=== PATIENT | male | born 1990 | race Caucasian/White ===

== ENCOUNTER 2016-12-27 10:37 | Emergency (ER) | payer OTHER ==
[~2016-12-27] VITALS: Ht 188 cm; Wt 75.0 kg
[~2016-12-27 10:37] MED LIST: ALBU8I INH; VIST50CA PO
[2016-12-27 10:41] VITALS: BP 129/64; PULSE 74; RESP 20; TEMP 97.3; O2SAT 94
--- NOTE | 2016-12-27 10:56 | PD ---
HPI Chief Complaint: Laceration/Skin Injury Time Seen by Provider: 10:52 Travel History International Travel<30 days: No Contact w/Intl Traveler<30days: No Traveled to known affect area: No History of Present Illness HPI 26-year-old male presents the emergency Department with a workplace injury of a laceration to the right anterior lower knee. Patient works as a restaurant server at the [email or web address] and some plates slipped off his tray breaking on the floor, the patient then slipped and fell landing on a piece of glass under his right knee. This occurred last evening. Patient is unsure of his last tetanus shot. Patient has continued intermittent bleeding from the wound. He denies significant pain, numbness, or weakness in the lower extremity. Patient has no known drug allergies. PFSH Past Medical History Asthma: Yes Diminished Hearing: No Respiratory: Yes (ASTHMA) Past Surgical History Other Surgery: Yes (moles removed) Social History Alcohol Use: Yes (2x week) Tobacco Use: No (2 years ago) Substance Use: No Allergies-Medications (Allergen,Severity, Reaction): Coded Allergies: No Known Allergies (Unverified , 12/27/16) Reported Meds & Prescriptions Reported Meds & Active Scripts Active Review of Systems Except as stated in HPI: all other systems reviewed are Neg General / Constitutional: No: Fever Eyes: No: Visual changes HENT: No: Headaches Cardiovascular: No: Chest Pain or Discomfort Respiratory: No: Shortness of Breath Gastrointestinal: No: Abdominal Pain Genitourinary: No: Dysuria Musculoskeletal: No: Pain Skin: No Rash Neurologic: No: Weakness Psychiatric: No: Depression Endocrine: No: Polydipsia Hematologic/Lymphatic: No: Easy Bruising Physical Exam Narrative GENERAL: Patient is in no acute distress. SKIN: Warm and dry. Normal color. Normal turgor. Patient has a 3 cm semicircular flap to the right distal patellar tendon area just above the tibial tuberosity. It is a full-thickness laceration. No foreign body is noted. No signs of infection is noted. HEAD: Atraumatic. Normocephalic. EYES: Pupils equal and round. No scleral icterus. No injection or drainage. ENT: No nasal bleeding or discharge. Mucous membranes pink and moist. Pharynx is normal. NECK: Trachea midline. Supple and nontender. CARDIOVASCULAR: Regular rate and rhythm. RESPIRATORY: No accessory muscle use. Clear to auscultation. Breath sounds equal bilaterally. MUSCULOSKELETAL: Extremities without clubbing, cyanosis, or edema. No obvious deformities. Range of motion is full. Strength is normal. Neurovascular exam is normal bilaterally in the lower extremities. NEUROLOGICAL: Awake and alert. No obvious cranial nerve deficits. Motor grossly within normal limits. Five out of 5 muscle strength in the arms and legs. Normal speech. PSYCHIATRIC: Appropriate mood and affect; insight and judgment normal. Data Data Last Documented VS Vital Signs Date Time Temp Pulse Resp B/P Pulse Ox O2 Delivery O2 Flow Rate FiO2 12/27/16 10:41 97.3 74 20 129/64 94 Room Air Orders Tetanus/Diphtheria Tox Adult (Tetanus/Di (12/27/16 11:00) Lidocai-Epi 1%-1:100,000 Inj (Xylocaine- (12/27/16 11:00) Cephalexin (Keflex) (12/27/16 11:00) MDM Medical Decision Making Medical Screen Exam Complete: Yes Emergency Medical Condition: Yes Differential Diagnosis Workplace injury. Laceration. Fall. Narrative Course Patient is medically stable at time of exam. Laceration of the right lower extremity is repaired. See procedure note. Patient given first dose of Keflex 500 mg by mouth. Patient is given tetanus 0.5 mg IM. Wound care is discussed with the patient. Patient is placed on Keflex 500 mg 3 times a day 7 days. Patient is given ibuprofen 600 mg 4 times a day when necessary pain. Patient is given worker's comp paperwork without restrictions. Patient did leave stitches in place for 10 days. Patient to follow with his Worker's Comp. provider for suture removal in 10 days or return to emergency department as needed. Procedures Procedure Narrative LACERATION LOCATION: right anterior proximal lower leg. LENGTH: 3 cm NUMBER OF STITCHES/MARIO: 3 interrupted vertical mattress REPAIR: The area of the laceration was prepped with Betadine and sterilely draped. The laceration was infiltrated with 3 mL 1% lidocaine with epi.. The wound was copiously irrigated and explored without evidence of foreign body, tendon injury or neurovascular injury. The wound was closed using 4-0 Prolene. This was a single layer repair. A sterile dressing was applied. The patient was advised to keep the dressing clean and dry. Sutures should remain in for 10 days. Wound care discussed with the patient. Patient tolerated the procedure well. Diagnosis Primary Impression: Laceration of right lower leg without complication Qualified Code: S81.811A - Laceration of right lower leg without complication , initial encounter Referrals: [employer] Patient Instructions: General Instructions, Laceration (ED), Tetanus (DC) Additional Instructions: Laceration of the right lower extremity is repaired. Patient given first dose of Keflex 500 mg by mouth. Patient is given tetanus 0.5 mg IM. Wound care is discussed with the patient. Patient is placed on Keflex 500 mg 3 times a day 7 days. Patient is given ibuprofen 600 mg 4 times a day when necessary pain. Patient is given worker's comp paperwork without restrictions. Patient did leave stitches in place for 10 days. Patient to follow with his Worker's Comp. provider for suture removal in 10 days or return to emergency department as needed. Med/Other Pt SpecificInfo: Prescription(s) given, Wound Care Disposition: 01 DISCHARGE HOME Condition: Stable Milton Godwin Dec 27, 2016 10:56
[2016-12-27] MEDS ORDERED: TETANUS/DIPHTHERIA TOXOID ADULT 0.5 ML VIAL IM ONE (11:00)
[2016-12-27] MEDS ORDERED: LIDOCAINE 1%/EPINEPHrine 1:100,000 SOLN 20 ML VIAL INFIL ONE (11:00)
[2016-12-27] MEDS ORDERED: CEPHALEXIN MONOHYDRATE 500 MG CAP PO ONE (11:00)
[2016-12-27] MEDS ORDERED: CEPH-460 PO (11:27)
[2016-12-27] MEDS ORDERED: IBUP-232 PO (11:27)
== END 2016-12-27 11:55 | disposition home or self-care (01) ==
LOC: NEPB 10:37
DX: S81.811A Laceration without foreign body, right lower leg, initial encounter (principal); Z23 Encounter for immunization; W01.110A Fall on same level from slipping, tripping and stumbling with subsequent striking against sharp glass, initial encounter; Y93.89 Activity, other specified; Y92.511 Restaurant or cafe as the place of occurrence of the external cause; Y99.0 Civilian activity done for income or pay
CPT/HCPCS: 12002; 90471; 90714